=== PATIENT | female | born 1965 | race African-American/Black ===

== ENCOUNTER 2018-10-26 11:51 | Inpatient (IN) | payer OTHER ==
[2018-10-26 12:27] VITALS: BMI 34.8
--- NOTE | 2018-10-26 13:14 | HP ---
CIWA Score Nausea/Vomitin Muscle Tremors: 2 Anxiety: 3 Agitation: 3 Paroxysmal Sweats: 2 Orientation: 1-Uncertain about Date Tacttile Disturbances: 3-Moderate Itch/Numb/Burn (both hands) Auditory Disturbances: 0-None Visual Disturbances: 0-None Headache: 2-Mild CIWA-Ar Total Score: 18 - Admission Criteria [facility]ASAS Guidelines: Admission for Medically Managed Detox: Requires at least one of the followin. CIWA greater than 12 2. Seizures within the past 24 hours 3. Delirium tremens within the past 24 hours 4. Hallucinations within the past 24 hours 5. Acute intervention needed for co occurring medical disorder 6. Acute intervention needed for co occurring psychiatric disorder 7. Severe withdrawal that cannot be handled at a lower level of care (continued vomiting, continued diarrhea, abnormal vital signs) requiring intravenous medication and/or fluids 8. Patient presents the following: CIWA greater than 12 Admission Criteria Met: Admission criteria met Admission ROS S - [facility] Chief Complaint: " I feel really sick, I am going through some things, I need to get clean" Allergies/Adverse Reactions: Allergies Allergy/AdvReac Type Severity Reaction Status Date / Time No Known Allergies Allergy Verified 10/26/18 12:34 History of Present Illness: 53 yo female with hx of alcohol, nicotine, PCP, crack /cocaine dependence is here seeking detox, this is one of multiple admission. Last detox [facility] 07/2016. PMHX: Pre-Diabetes, neuropathy, anemia, bipolar. Denies hx of seizures or blackouts. Denies suicidal / homicidal ideation or hx of suicide attempt. Denies any recent hospitalization or legal problems at this time. Exam Limitations: No Limitations - Ebola screening Have you traveled outside of the country in the last 21 days: No Have you had contact with anyone from an Ebola affected area: No Have you been sick,other than usual withdrawal symptoms: No Do you have a fever: No - Review of Systems Constitutional: Chills, Changes in sleep, Other (weight gain) EENT: reports: No Symptoms Reported Respiratory: reports: No Symptoms reported Cardiac: reports: Palpitations GI: reports: Nausea, Poor Fluid Intake, Indigestion : reports: No Symptoms Reported Musculoskeletal: reports: No Symptoms Reported Integumentary: reports: Rash, Other (" I feel like something is crawling on me") Neuro: reports: Numbness, Paresthesia, Tingling, Weakness, Dizziness Endocrine: reports: See HPI, Increased Thirst Hematology: reports: See HPI, Anemia Psychiatric: reports: Orientated x3, Anxious Other Systems: Reviewed and Negative Patient History - Patient Medical History Hx Anemia: Yes (HX BUT NO CURRENT MED) Hx Asthma: No Hx Chronic Obstructive Pulmonary Disease (COPD): No Hx Cancer: No Hx Cardiac Disorders: No Hx Congestive Heart Failure: No Hx Hypertension: No Hx Hypercholesterolemia: Yes (no treatment) Hx Pacemaker: No HX Cerebrovascular Accident: No Hx Seizures: No Hx Dementia: No Hx Diabetes: Yes (currently not on medication) Hx Gastrointestinal Disorders: No Hx Liver Disease: No Hx Genitourinary Disorders: No Hx Sexually Transmitted Disorders: No Hx Renal Disease (ESRD): No Hx Thyroid Disease: No Hx Human Immunodeficiency Virus (HIV): No (NEGATIVE HX) Hx Hepatitis C: No Hx Depression: No Hx Suicide Attempt: No Hx Bipolar Disorder: Yes Hx Schizophrenia: No - Patient Surgical History Past Surgical History: No Hx Neurologic Surgery: No Hx Cataract Extraction: No Hx Cardiac Surgery: No Hx Lung Surgery: No Hx Breast Surgery: No Hx Breast Biopsy: No Hx Abdominal Surgery: No Hx Appendectomy: No Hx Cholecystectomy: No Hx Genitourinary Surgery: No Hx Section: No Hx Orthopedic Surgery: No Hx Hysterectomy: No Anesthesia Reaction: No - PPD History Previous Implant?: Yes Documented Results: Negative w/proof Implanted On Prior [facility] Admission?: Yes Date: 07/24/16 Results: 0 mm PPD to be Administered?: Yes - Reproductive History Last Menstrual Period: 08/09/13 Patient : No - Smoking Cessation Smoking history: Current every day smoker Have you smoked in the past 12 months: Yes Aproximately how many cigarettes per day: 20 Cigars Per Day: 0 Hx Chewing Tobacco Use: No Initiated information on smoking cessation: Yes 'Breaking Loose' booklet given: 10/26/18 - Substance & Tx. History Hx Alcohol Use: Yes Hx Substance Use: Yes Substance Use Type: Alcohol Hx Substance Use Treatment: Yes (Detox [facility] 07/2016) - Substances Abused Crack Route: Smoking Frequency: Daily Amount used: $500 Age of first use: 22 Date of Last Use: 10/25/18 PCP Route: Smoking Frequency: 1-2 times per week Amount used: $20 Age of first use: 15 Date of Last Use: 10/24/18 Alcohol-beer/vodka Route: Oral Frequency: Daily Amount used: 15 (40 oz.)/2 pts. Age of first use: 41 Date of Last Use: 10/25/18 Family Disease History - Family Disease History Family Disease History: Respiratory: Mother (), Other: Father (never met ), Mother Admission Physical Exam S - Vital Signs Vital Signs: Vital Signs - 24 hr 10/26/18 12:24 Temperature 98.8 F Pulse Rate 107 H Respiratory 20 Rate Blood Pressure 118/65 - Physical General Appearance: Yes: Appropriately Dressed, Mild Distress, Intoxicated, Obese, Tremorous HEENTM: Yes: Hearing grossly Normal, Normal ENT Inspection, Normocephalic, Normal Voice, RESHMA, Pharynx Normal, Tm's normal, Other (strabismus) Respiratory: Yes: Chest Non-Tender, Lungs Clear, Normal Breath Sounds, No Respiratory Distress Neck: Yes: Within Normal Limits Cardiology: Yes: Regular Rhythm, Tachycardia Abdominal: Yes: Normal Bowel Sounds, Non Tender, Soft, Protuberent Genitourinary: Yes: Within Normal Limits Back: Yes: Normal Inspection Musculoskeletal: Yes: full range of Motion, Gait Steady, Pelvis Stable Extremities: Yes: Normal Capillary Refill, Normal Inspection, Normal Range of Motion, Non-Tender Neurological: Yes: jig hand II-XII NML intact, Fully Oriented, Alert, Motor Strength 5/5, Depressed Affect Integumentary: Yes: Normal Color, Warm, Moist Lymphatic: Yes: Within Normal Limits - Diagnostic (1) Alcohol dependence with withdrawal Current Visit: Yes Status: Acute Qualifiers: Complication of substance-induced condition: uncomplicated Qualified Code(s ): F10.230 - Alcohol dependence with withdrawal, uncomplicated (2) Cocaine dependence Current Visit: Yes Status: Acute Qualifiers: Substance use status: uncomplicated Qualified Code(s): F14.20 - Cocaine dependence, uncomplicated (3) Nicotine dependence Current Visit: Yes Status: Acute Qualifiers: Nicotine product type: cigarettes Substance use status: uncomplicated Qualified Code(s): F17.210 - Nicotine dependence, cigarettes, uncomplicated (4) PCP (phencyclidine) abuse Current Visit: Yes Status: Chronic (5) Anemia Current Visit: Yes Status: Chronic Qualifiers: Anemia type: iron deficiency Comment: cbc pending (6) Diabetes mellitus type II, controlled Current Visit: Yes Status: Chronic Qualifiers: Diabetes mellitus termite control servicer insulin use: without intermediate use Diabetes mellitus complication status: without complication Qualified Code(s): E11.9 - Type 2 diabetes mellitus without complications Comment: dietary control (7) Hypercholesteremia Current Visit: Yes Status: Chronic Comment: no treatment dietary control (8) Formication Current Visit: Yes Status: Acute Cleared for Admission [facility] - Detox or Rehab [facility] Level of Care: Medically Managed Detox Regimen/Protocol: Librium S Breath Alcohol Content Breath Alcohol Content: 0.004 Urine Pregancy Test - Result Urine Test Results: Negative- NO Line Present Urine Drug Screen - Results Drug Screen Negative: No Urine Drug Screen Results: MIREYA-Cocaine Inpatient Rehab Admission - Rehab Decision to Admit Inpatient rehab admission?: No
[2018-10-26] MEDS ORDERED: guaiFENesin/D-METHORPHAN HB 10 ML UNIT-DOSE CUPS PO PRN (13:27)
[2018-10-26] MEDS ORDERED: IBUPROFEN 400 MG TABLET (FP) PO PRN (13:27)
[2018-10-26] MEDS ORDERED: MENTHOL/PHENOL 1 EACH UD MM PRN (13:27)
[2018-10-26] MEDS ORDERED: LOPERAMIDE HCL 2 MG CAPSULE PO PRN (13:27)
[2018-10-26] MEDS ORDERED: NICOTINE POLACRILEX 2 MG GUM BUC PRN (13:27)
[2018-10-26] MEDS ORDERED: MAGNESIUM HYDROX 2400MG/30ML ORAL SUSPENSION 30 ML CUP PO PRN (13:27)
[2018-10-26] MEDS ORDERED: ACETAMINOPHEN 325 MG TABLET (FP) PO PRN (13:27)
[2018-10-26] MEDS ORDERED: MAGNESIUM CITRATE 300 ML BOTTLE PO PRN (13:27)
[2018-10-26] MEDS ORDERED: MAG HYDROX/AL HYDROX/SIMETH 30 ML UNIT-DOSE CUP PO PRN (13:27)
--- NOTE | 2018-10-26 14:54 | EKG ---
Test Reason : Blood Pressure : / mmHG Vent. Rate : 098 BPM Atrial Rate : 098 BPM P-R Int : 174 ms QRS Dur : 086 ms QT Int : 362 ms P-R-T Axes : 060 025 030 degrees QTc Int : 462 ms NORMAL SINUS RHYTHM NORMAL ECG NO PREVIOUS ECGS AVAILABLE Confirmed by SKYLER TROY, SOL ([id number]) on 10/26/2018 2:54:36 PM Referred By: Confirmed By:SOL HOLLAND MD
[2018-10-26] MEDS: chlordiazePOXIDE HCL 25 MG CAPSULE PO PRN (15:03)
[2018-10-26] MEDS ORDERED: chlordiazePOXIDE HCL 25 MG CAPSULE PO SCH (17:00)
[2018-10-26] MEDS: chlordiazePOXIDE HCL 25 MG CAPSULE PO SCH ×2 (17:59→22:19)
[2018-10-26] MEDS: THIAMINE HCL 100 MG TABLET (FP) PO SCH (22:19)
[2018-10-26] MEDS: P-EPHED 60MG/TRIPROLIDI 2.5MG TABLET PO PRN (22:19)
[2018-10-26] MEDS: MELATONIN 5 MG TABLETS PO PRN (22:34)
[2018-10-27] MEDS: chlordiazePOXIDE HCL 25 MG CAPSULE PO SCH ×4 (05:55→22:47)
[2018-10-27] MEDS: NICOTINE 14 MG/24 HOURS TOPICAL PATCH TD SCH (10:23)
[2018-10-27] MEDS: PRENATAL VITAMINS W/ FOLIC ACID TABLET (FP) PO SCH (10:23)
[2018-10-27 10:58] LABS: ALBUMIN 3.9 g/dl (3.4-5.0); ALK PHOS 104 U/L (45-117); ANION GAP 6 MMOL/L (8-16); BILIRUBIN,TOTAL 0.3 mg/dL (0.2-1); BLOOD UREA NITROGEN 20 mg/dL (7-18); CALCIUM 9.5 mg/dL (8.5-10.1); CHLORIDE 104 mmol/L (98-107); CO2 29 mmol/L (21-32); CREATININE 0.7 mg/dL (0.55-1.3); GLUCOSE,RANDOM 84 mg/dL (74-106); POTASSIUM 3.8 mmol/L (3.5-5.1); SGOT/AST 22 U/L (15-37); SGPT/ALT 30 U/L (13-61); SODIUM 140 mmol/L (136-145); TOT PROT 7.9 g/dl (6.4-8.2)
[2018-10-27 11:00] LABS: HEMATOCRIT 35.8 % (32.4-45.2); HEMOGLOBIN 12.1 GM/dL (10.7-15.3); MCH 29.3 pg (25.7-33.7); MCHC 33.8 g/dl (32.0-36.0); MEAN CELL VOLUME 86.6 fl (80-96); MEAN PLT VOLUME 8.5 fl (7.5-11.1); PLATELET COUNT 309 K/MM3 (134-434); RBC 4.14 M/mm3 (3.60-5.2); RDW 15.1 % (11.6-15.6); WHITE BLOOD COUNT 5.6 K/mm3 (4.0-10.0)
[2018-10-27] MEDS: hydrOXYzine PAMOATE 50 MG CAPSULE (FP) PO PRN (14:01)
--- NOTE | 2018-10-27 14:13 | PN ---
[facility] CIWA - CIWA Score Nausea/Vomitin-Mild Nausea/No Vomiting Muscle Tremors: 4-Moderate,w/Arms Extend Anxiety: 3 Agitation: 3 Paroxysmal Sweats: 1-Minimal Palms Moist Orientation: 1-Uncertain about Date Tacttile Disturbances: 0-None Auditory Disturbances: 0-None Visual Disturbances: 0-None Headache: 1-Very Mild CIWA-Ar Total Score: 14 S Progress Note (SOAP) Subjective: tremor sweating irritable Objective: 10/27/18 14:13 Vital Signs Temperature 97.4 F L 10/27/18 13:58 Pulse Rate 83 10/27/18 13:58 Respiratory Rate 18 10/27/18 13:58 Blood Pressure 106/74 10/27/18 13:58 O2 Sat by Pulse Oximetry (%) Laboratory Last Values WBC 5.6 K/mm3 (4.0-10.0) 10/27/18 06:00 RBC 4.14 M/mm3 (3.60-5.2) 10/27/18 06:00 Hgb 12.1 GM/dL (10.7-15.3) 10/27/18 06:00 Hct 35.8 % (32.4-45.2) 10/27/18 06:00 MCV 86.6 fl (80-96) 10/27/18 06:00 MCH 29.3 pg (25.7-33.7) 10/27/18 06:00 MCHC 33.8 g/dl (32.0-36.0) 10/27/18 06:00 RDW 15.1 % (11.6-15.6) 10/27/18 06:00 Plt Count 309 K/MM3 (134-434) 10/27/18 06:00 MPV 8.5 fl (7.5-11.1) 10/27/18 06:00 Sodium 140 mmol/L (136-145) 10/27/18 06:00 Potassium 3.8 mmol/L (3.5-5.1) 10/27/18 06:00 Chloride 104 mmol/L (98-107) 10/27/18 06:00 Carbon Dioxide 29 mmol/L (21-32) 10/27/18 06:00 Anion Gap 6 MMOL/L (8-16) L 10/27/18 06:00 BUN 20 mg/dL (7-18) H 10/27/18 06:00 Creatinine 0.7 mg/dL (0.55-1.3) 10/27/18 06:00 Creat Clearance w eGFR > 60 (>60) 10/27/18 06:00 POC Glucometer 110 UNITS (80-120) 10/27/18 05:53 Random Glucose 84 mg/dL (74-106) 10/27/18 06:00 Calcium 9.5 mg/dL (8.5-10.1) 10/27/18 06:00 Total Bilirubin 0.3 mg/dL (0.2-1) 10/27/18 06:00 AST 22 U/L (15-37) 10/27/18 06:00 ALT 30 U/L (13-61) 10/27/18 06:00 Alkaline Phosphatase 104 U/L (45-117) 10/27/18 06:00 Total Protein 7.9 g/dl (6.4-8.2) 10/27/18 06:00 Albumin 3.9 g/dl (3.4-5.0) 10/27/18 06:00 RPR Titer Nonreactive (NONREACTIVE) 10/27/18 06:00 HIV 1&2 Antibody Screen Negative 10/26/18 13:00 HIV P24 Antigen Negative 10/26/18 13:00 lab noted Assessment: 10/27/18 14:13 withdrawal sx Plan: continue detox
[2018-10-27] MEDS ORDERED: chlordiazePOXIDE HCL 25 MG CAPSULE PO SCH (17:00)
[2018-10-27] MEDS: chlordiazePOXIDE HCL 25 MG CAPSULE PO PRN (20:11)
[2018-10-27] MEDS: MELATONIN 5 MG TABLETS PO PRN (22:47)
[2018-10-27] MEDS: THIAMINE HCL 100 MG TABLET (FP) PO SCH (22:47)
[2018-10-28] MEDS: chlordiazePOXIDE HCL 25 MG CAPSULE PO SCH ×2 (05:56→10:15)
[2018-10-28] MEDS: P-EPHED 60MG/TRIPROLIDI 2.5MG TABLET PO PRN (07:58)
[2018-10-28] MEDS: PRENATAL VITAMINS W/ FOLIC ACID TABLET (FP) PO SCH (10:17)
[2018-10-28] MEDS: NICOTINE 14 MG/24 HOURS TOPICAL PATCH TD SCH (10:17)
--- NOTE | 2018-10-28 10:23 | CONSULT ---
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 Medical History: Anemia,arthritis,DM,Hyperlipidemia. Psychiatric History: patient reports history of depression,mood instability along with drinking,drug use.She was treated with psychotropic medications on and off when was dx with Bipolar disorder.No psychiatric hospitalizations reported ,no suicidal attempts in the past.Reports no psychiatric OPDcare at present,states that she had good response to Trazodone for insomnia and To Vistaril prn for anxiety.patient addressed anxiety and sleeping difficulties. Physical/Sexual Abuse/Trauma History: denies Mental Status Exam - Mental Status Exam Alert and Oriented to: Time, Place, Person Cognitive Function: Grossly Intact Patient Appearance: Unkempt Mood: Suspicious, Nervous, Anxious Affect: Labile Patient Behavior: Restless, Guarded, Distractible Speech Pattern: Clear, Excessive Voice Loudness: Mildly Loud Thought Process: Goal Oriented Thought Disorder: Not Present Hallucinations: Denies Suicidal Ideation: Denies Homicidal Ideation: Denies Insight/Judgement: Fair Sleep: Difficulty falling asleep Appetite: Good Muscle strength/Tone: Normal Gait/Station: Normal Psychiatric Findings - Problem List ([place] 1, 2,3) (1) Alcohol dependence with withdrawal Status: Chronic Qualifiers: Complication of substance-induced condition: uncomplicated Qualified Code(s ): F10.230 - Alcohol dependence with withdrawal, uncomplicated (2) Cocaine dependence Status: Chronic Qualifiers: Substance use status: uncomplicated Qualified Code(s): F14.20 - Cocaine dependence, uncomplicated (3) Nicotine dependence Status: Acute Qualifiers: Nicotine product type: cigarettes Substance use status: uncomplicated Qualified Code(s): F17.210 - Nicotine dependence, cigarettes, uncomplicated (4) Anemia Status: Chronic Qualifiers: Anemia type: iron deficiency Iron deficiency anemia type: unspecified iron deficiency Qualified Code(s): D50.9 - Iron deficiency anemia, unspecified Comment: cbc pending (5) Diabetes mellitus type II, controlled Status: Chronic Qualifiers: Diabetes mellitus terminal worker insulin use: without terminal worker use Diabetes mellitus complication status: without complication Qualified Code(s): E11.9 - Type 2 diabetes mellitus without complications Comment: dietary control (6) Hypercholesteremia Status: Chronic Comment: no treatment dietary control (7) PCP (phencyclidine) abuse Status: Chronic (8) Arthritis Status: Chronic (9) Bipolar 1 disorder, depressed Status: Chronic Comment: depakote level pending - Initial Treatment Plan Initial Treatment Plan: Trazodone 50 mg po hs,Vistaril 50 mg po qid prn for anxiety.
[2018-10-28 13:09] VITALS: BP 105/72; PULSE 107; TEMP 99.1
[2018-10-28] MEDS: hydrOXYzine PAMOATE 50 MG CAPSULE (FP) PO PRN (14:08)
--- NOTE | 2018-10-28 14:31 | PN ---
S CIWA - CIWA Score Nausea/Vomitin-No Nausea/No Vomiting Muscle Tremors: None Anxiety: 3 Agitation: 4-Moderately Restless Paroxysmal Sweats: No Perspiration Orientation: 0-Oriented Tacttile Disturbances: 0-None Auditory Disturbances: 0-None Visual Disturbances: 0-None Headache: 0-None Present CIWA-Ar Total Score: 7 [facility] Progress Note (SOAP) Subjective: Patient appears Anxious and Agitated on Unit. However, Patient believes that this to Not be due to Withdrawal. Patient Has History of Bipolar Disorder, for which she is not currently being treated. Patient Denies any Other Withdrawal symptoms at this Time. Objective: PATIENT A & O X 3, OBSERVED AMBULATING ON UNIT. IN NO ACUTE DISTRESS. 10/28/18 14:29 Vital Signs Temperature 99.1 F 10/28/18 13:08 Pulse Rate 107 H 10/28/18 13:08 Respiratory Rate 17 10/28/18 13:08 Blood Pressure 105/72 10/28/18 13:08 O2 Sat by Pulse Oximetry (%) Laboratory Tests 10/26/18 10/26/18 10/27/18 12:51 13:00 05:53 WBC RBC Hgb Hct MCV MCH MCHC RDW Plt Count MPV Sodium Potassium Chloride Carbon Dioxide Anion Gap BUN Creatinine Creat Clearance w eGFR POC Glucometer 98 110 Random Glucose Calcium Total Bilirubin AST ALT Alkaline Phosphatase Total Protein Albumin RPR Titer HIV 1&2 Antibody Screen Negative HIV P24 Antigen Negative 10/27/18 10/27/18 10/27/18 06:00 06:00 06:00 WBC 5.6 RBC 4.14 Hgb 12.1 Hct 35.8 MCV 86.6 MCH 29.3 MCHC 33.8 RDW 15.1 Plt Count 309 MPV 8.5 Sodium 140 Potassium 3.8 Chloride 104 Carbon Dioxide 29 Anion Gap 6 L BUN 20 H Creatinine 0.7 Creat Clearance w eGFR > 60 POC Glucometer Random Glucose 84 Calcium 9.5 Total Bilirubin 0.3 AST 22 ALT 30 Alkaline Phosphatase 104 Total Protein 7.9 Albumin 3.9 RPR Titer Nonreactive HIV 1&2 Antibody Screen HIV P24 Antigen 10/28/18 05:52 WBC RBC Hgb Hct MCV MCH MCHC RDW Plt Count MPV Sodium Potassium Chloride Carbon Dioxide Anion Gap BUN Creatinine Creat Clearance w eGFR POC Glucometer 94 Random Glucose Calcium Total Bilirubin AST ALT Alkaline Phosphatase Total Protein Albumin RPR Titer HIV 1&2 Antibody Screen HIV P24 Antigen LABS NOTED. Assessment: 10/28/18 14:30 ALCOHOL WITHDRAWAL. Plan: CONTINUE DETOX. INCREASE DAILY PO FLUID INTAKE. PATIENT REPORTS THAT CURRENT WITHDRAWAL / DETOX SYMPTOMS ARE MINIMAL. PATIENT ALSO NOTES THAT SHE INTENDS TO PURSUE REHAB ADMISSION ON HER OWN STARTING EARLY NEXT WEEK. HOWEVER, JACK WOULD LIKE TO BE DISCHARGED EARLY TO GO HOME TO ATTEND TO PERSONAL MATTERS AT HOME PRIOR TO APPLICATION FOR ADMISSION TO REHAB. AT PATIENT'S REQUEST, CURRENT DETOX MEDICATION REGIMEN MODIFIED SO THAT PATIENT MAY BE DISCHARGED TOMORROW, 10/29/2018.
--- NOTE | 2018-10-28 16:38 | DS ---
[facility] Detox Discharge Summary Admission Date: 10/26/18 Discharge Date: 10/28/18 - History Present History: Alcohol Dependence, Cocaine Dependence, Pcp Dependence Additional Comments: DESPITE EARLIER DETOX MEDICATION REGIMEN MODIFICATION BY VENDING MACHINE TECHNICIAN SO THAT PATIENT MAY LEAVE EARLY (TOMORROW, 10/29/2018), PATIENT DOES NOT WISH TO REMAIN TO COMPLETE DETOX REGIMEN AT THIS TIME. RISKS OF LEAVING DETOX UNIT AGAINST MEDICAL ADVICE AND PRIOR TO COMPLETION OF DETOX REGIMEN EXPLAINED TO PATIENT. PATIENT ADVISED TO GO IMMEDIATELY TO NEAREST ER SHOULD ANY INTOLERABLE DETOX SYMPTOMS DEVELOP AT ANY TIME. PATIENT VERBALIZED UNDERSTANDING OF ALL INFORMATION / RECOMMENDATIONS PRESENTED TO HER PRIOR TO DEPARTURE FROM DETOX UNIT. PATIENT LEFT DETOX UNIT IN STABLE MEDICAL CONDITION. Pertinent Past History: History of Anemia, Type II DM, Formication, History of Bipolar I Disorder, Hypercholesterolemia, Nicotine Dependence, Arthritis. - Physical Exam Results Vital Signs: Vital Signs Temperature 99.1 F 10/28/18 13:08 Pulse Rate 107 H 10/28/18 13:08 Respiratory Rate 17 10/28/18 13:08 Blood Pressure 105/72 10/28/18 13:08 O2 Sat by Pulse Oximetry (%) Pertinent Admission Physical Exam Findings: WITHDRAWAL SYMPTOMS. Laboratory Tests 10/26/18 10/26/18 10/27/18 12:51 13:00 05:53 WBC RBC Hgb Hct MCV MCH MCHC RDW Plt Count MPV Sodium Potassium Chloride Carbon Dioxide Anion Gap BUN Creatinine Creat Clearance w eGFR POC Glucometer 98 110 Random Glucose Calcium Total Bilirubin AST ALT Alkaline Phosphatase Total Protein Albumin RPR Titer HIV 1&2 Antibody Screen Negative HIV P24 Antigen Negative 10/27/18 10/27/18 10/27/18 06:00 06:00 06:00 WBC 5.6 RBC 4.14 Hgb 12.1 Hct 35.8 MCV 86.6 MCH 29.3 MCHC 33.8 RDW 15.1 Plt Count 309 MPV 8.5 Sodium 140 Potassium 3.8 Chloride 104 Carbon Dioxide 29 Anion Gap 6 L BUN 20 H Creatinine 0.7 Creat Clearance w eGFR > 60 POC Glucometer Random Glucose 84 Calcium 9.5 Total Bilirubin 0.3 AST 22 ALT 30 Alkaline Phosphatase 104 Total Protein 7.9 Albumin 3.9 RPR Titer Nonreactive HIV 1&2 Antibody Screen HIV P24 Antigen 10/28/18 05:52 WBC RBC Hgb Hct MCV MCH MCHC RDW Plt Count MPV Sodium Potassium Chloride Carbon Dioxide Anion Gap BUN Creatinine Creat Clearance w eGFR POC Glucometer 94 Random Glucose Calcium Total Bilirubin AST ALT Alkaline Phosphatase Total Protein Albumin RPR Titer HIV 1&2 Antibody Screen HIV P24 Antigen LABS NOTED. - Treatment Hospital Course: Detoxed Safely - Medication Discharge Medications: Ambulatory Orders NK [No Known Home Medication] 11/27/13 - Diagnosis (1) Formication Status: Acute (2) Nicotine dependence Status: Acute Qualifiers: Nicotine product type: cigarettes Substance use status: uncomplicated Qualified Code(s): F17.210 - Nicotine dependence, cigarettes, uncomplicated (3) Substance induced mood disorder Status: Acute (4) Alcohol dependence with withdrawal Status: Chronic Qualifiers: Complication of substance-induced condition: uncomplicated Qualified Code(s ): F10.230 - Alcohol dependence with withdrawal, uncomplicated (5) Anemia Status: Chronic Qualifiers: Anemia type: iron deficiency Iron deficiency anemia type: unspecified iron deficiency Qualified Code(s): D50.9 - Iron deficiency anemia, unspecified (6) Arthritis Status: Chronic (7) Bipolar 1 disorder, depressed Status: Chronic (8) Cocaine dependence Status: Chronic Qualifiers: Substance use status: uncomplicated Qualified Code(s): F14.20 - Cocaine dependence, uncomplicated (9) Diabetes mellitus type II, controlled Status: Chronic Qualifiers: Diabetes mellitus exterminator termite insulin use: without exterminator termite use Diabetes mellitus complication status: without complication Qualified Code(s): E11.9 - Type 2 diabetes mellitus without complications (10) Hypercholesteremia Status: Chronic (11) PCP (phencyclidine) abuse Status: Chronic - AMA Did Patient Leave Against Medical Advice: Yes (PATIENT DID NOT WISH TO REMAIN TO COMPLETE DETOX REGIMEN.)
[2018-10-28] MEDS ORDERED: chlordiazePOXIDE 5 MG CAPSULE PO SCH ×2 (17:00)
[2018-10-28] MEDS ORDERED: chlordiazePOXIDE HCL 10 MG CAPSULE PO SCH (17:00)
[2018-10-28] MEDS ORDERED: traZODone HCL 50 MG TABLET (FP) PO SCH (22:00)
[2018-10-29] MEDS ORDERED: chlordiazePOXIDE HCL 10 MG CAPSULE PO SCH ×2 (17:00)
== END 2018-10-28 15:46 | disposition left against medical advice (07) | DRG 894 ==
LOC: YASAS 11:51 → Y3N 14:08
PROVIDERS: ADMIT Surgery; ATTEND Surgery
PROC: HZ2ZZZZ Detoxification Services for Substance Abuse Treatment (ICD-10-PCS; principal; 2018-10-26)
DX: F10.230 Alcohol dependence with withdrawal, uncomplicated (principal); F14.20 Cocaine dependence, uncomplicated; F16.10 Hallucinogen abuse, uncomplicated; F17.210 Nicotine dependence, cigarettes, uncomplicated; F19.24 Other psychoactive substance dependence with psychoactive substance-induced mood disorder; F31.9 Bipolar disorder, unspecified; R20.2 Paresthesia of skin; D50.9 Iron deficiency anemia, unspecified; M19.90 Unspecified osteoarthritis, unspecified site; E11.9 Type 2 diabetes mellitus without complications; E78.5 Hyperlipidemia, unspecified; R00.0 Tachycardia, unspecified; E66.9 Obesity, unspecified; Z68.34 Body mass index [BMI] 34.0-34.9, adult
CPT/HCPCS: 36415; 80053; 82962; 85027; 86593; 87389; 93005; 93010